=== PATIENT | male | born 1985 | race African-American/Black ===

== ENCOUNTER → 2020-12-14 | Outpatient (CLI) | payer BC ==
[2020-12-14 09:13] LABS: BASOPHILS % 0.4 % (0.0-2.0); EOSINOPHILS % 1.2 % (0.0-5.0); HEMATOCRIT. 38.9 % (42.0-52.0); HEMOGLOBIN. 13.2 g/dL (14.0-18.0); MEAN CORPUSCULAR HEMOGLOBIN 28.1 pg (28.0-32.0); MEAN CORPUSCULAR VOLUME 82.5 fL (80.0-94.0); MEAN PLATELET VOLUME 8.8 fl (7.4-10.4); MONOCYTES % 5.9 % (2.0-8.0); NEUTROPHILS % 39.5 % (40.0-76.0); PLATELET 144 x1000/uL (130-400); RED BLOOD CELL COUNT 4.72 mill/uL (4.7-6.1); RED CELL DISTRIBUTION WIDTH 13.3 % (11.6-14.6)
[2020-12-14 09:23] LABS: CHLORIDE 110 mEq/L (98-107)
[2020-12-14 09:34] LABS: LDL CHOLESTEROL 84 mg/dL (5-100)
[2020-12-14 09:35] LABS: HDL CHOLESTEROL 35 mg/dL (40-59)
== END | disposition home or self-care (01) ==
LOC: LAB 08:15
PROVIDERS: ATTEND Internal Medicine
DX: M51.37 Other intervertebral disc degeneration, lumbosacral region (principal); M54.5 Low back pain
CPT/HCPCS: 36415; 72100; 80053; 80061; 83036; 84443; 85025

== ENCOUNTER 2021-06-02 17:01 | Emergency (ER) | payer BC ==
[~2021-06-02] VITALS: Ht 180.3 cm; Wt 92.0 kg
[2021-06-02] MEDS ORDERED: KETOROLAC 60MG/2ML VIAL IM STA (18:32)
[2021-06-02 18:58] LABS: BASOPHILS % 0.4 % (0.0-2.0); EOSINOPHILS % 0.7 % (0.0-5.0); HEMATOCRIT. 43.7 % (42.0-52.0); HEMOGLOBIN. 14.4 g/dL (14.0-18.0); LYMPHOCYTES % 47.8 % (20.0-50.0); MEAN CORPUSCULAR HEMOGLOBIN 27.6 pg (28.0-32.0); MEAN CORPUSCULAR VOLUME 83.6 fL (80.0-94.0); MEAN PLATELET VOLUME 9.3 fl (7.4-10.4); MONOCYTES % 6.3 % (2.0-8.0); NEUTROPHILS % 44.8 % (40.0-76.0); PLATELET 140 x1000/uL (130-400); RED BLOOD CELL COUNT 5.23 mill/uL (4.7-6.1); RED CELL DISTRIBUTION WIDTH 13.7 % (11.6-14.6)
[2021-06-02 19:04] LABS: CHLORIDE 109 mEq/L (98-107)
[2021-06-02] MEDS ORDERED: IBUP-2028 MT (20:32)
[2021-06-02 21:01] VITALS: BP 138/71
== END 2021-06-02 21:03 | disposition home or self-care (01) ==
LOC: ER 17:01
DX: R07.9 Chest pain, unspecified (principal); R10.9 Unspecified abdominal pain; M54.9 Dorsalgia, unspecified; X50.1XXA Overexertion from prolonged static or awkward postures, initial encounter; Y93.9 Activity, unspecified; Y92.9 Unspecified place or not applicable
CPT/HCPCS: 36415; 71045; 80053; 83690; 85025; 96372; 99284; J1885

== ENCOUNTER → 2021-06-21 | Outpatient (CLI) | payer BC ==
[~2021-06-21] MED LIST: BARIUM SULFATE 450ML ORAL SUSP ONE; IBUP-2028 MT
== END | disposition home or self-care (01) ==
LOC: CT 08:57
PROVIDERS: ATTEND Internal Medicine
DX: R10.9 Unspecified abdominal pain (principal)
CPT/HCPCS: 74176

== ENCOUNTER → 2021-06-25 | Outpatient (CLI) | payer BC ==
[~2021-06-25] MED LIST changes: -BARIUM SULFATE 450ML ORAL SUSP ONE
[2021-06-25 10:14] LABS: BASOPHILS % 0.6 % (0.0-2.0); EOSINOPHILS % 0.8 % (0.0-5.0); HEMATOCRIT. 38.5 % (42.0-52.0); HEMOGLOBIN. 12.9 g/dL (14.0-18.0); LYMPHOCYTES % 51.2 % (20.0-50.0); MEAN CORPUSCULAR HEMOGLOBIN 27.3 pg (28.0-32.0); MEAN CORPUSCULAR VOLUME 81.7 fL (80.0-94.0); MEAN PLATELET VOLUME 9.6 fl (7.4-10.4); MONOCYTES % 5.1 % (2.0-8.0); NEUTROPHILS % 42.3 % (40.0-76.0); PLATELET 122 x1000/uL (130-400); RED BLOOD CELL COUNT 4.71 mill/uL (4.7-6.1); RED CELL DISTRIBUTION WIDTH 13.5 % (11.6-14.6)
[2021-06-25 10:28] LABS: CHLORIDE 107 mEq/L (98-107)
[2021-06-25 10:35] LABS: LDL CHOLESTEROL 94 mg/dL (5-100)
[2021-06-25 10:36] LABS: HDL CHOLESTEROL 33 mg/dL (40-59)
== END | disposition home or self-care (01) ==
LOC: LAB 09:38
PROVIDERS: ATTEND Internal Medicine
DX: D72.819 Decreased white blood cell count, unspecified (principal); R10.9 Unspecified abdominal pain; M54.9 Dorsalgia, unspecified
CPT/HCPCS: 36415; 80053; 80061; 85025

== ENCOUNTER → 2021-11-14 | Outpatient (CLI) | payer BC ==
[2021-11-14 11:16] LABS: BASOPHILS % 0.5 % (0.0-2.0); EOSINOPHILS % 1.3 % (0.0-5.0); HEMATOCRIT. 41.1 % (42.0-52.0); HEMOGLOBIN. 13.5 g/dL (14.0-18.0); LYMPHOCYTES % 51.1 % (20.0-50.0); MEAN CORPUSCULAR HEMOGLOBIN 27.3 pg (28.0-32.0); MONOCYTES % 4.8 % (2.0-8.0); NEUTROPHILS % 42.3 % (40.0-76.0); PLATELET 134 x1000/uL (130-400); RED BLOOD CELL COUNT 4.96 mill/uL (4.7-6.1); RED CELL DISTRIBUTION WIDTH 13.3 % (11.6-14.6)
[2021-11-14 11:29] LABS: CHLORIDE 109 mEq/L (98-107)
[2021-11-14 11:37] LABS: HDL CHOLESTEROL 43 mg/dL (40-59); LDL CHOLESTEROL 134 mg/dL (5-100)
== END | disposition home or self-care (01) ==
LOC: LAB 10:43
PROVIDERS: ATTEND Internal Medicine
DX: M54.50 Low back pain, unspecified (principal)
CPT/HCPCS: 36415; 80053; 80061; 83036; 85025

== ENCOUNTER → 2021-12-27 | Outpatient (CLI) | payer BC ==
[2021-12-27 13:22] LABS: BASOPHILS % 0.3 % (0.0-2.0); EOSINOPHILS % 0.9 % (0.0-5.0); HEMATOCRIT. 42.9 % (42.0-52.0); HEMOGLOBIN. 14.1 g/dL (14.0-18.0); LYMPHOCYTES % 41.8 % (20.0-50.0); MEAN CORPUSCULAR HEMOGLOBIN 27.4 pg (28.0-32.0); MEAN CORPUSCULAR VOLUME 83.5 fL (80.0-94.0); MONOCYTES % 5.1 % (2.0-8.0); NEUTROPHILS % 51.9 % (40.0-76.0); PLATELET 137 x1000/uL (130-400); RED BLOOD CELL COUNT 5.14 mill/uL (4.7-6.1); RED CELL DISTRIBUTION WIDTH 13.6 % (11.6-14.6)
== END | disposition home or self-care (01) ==
LOC: LAB 12:30
PROVIDERS: ATTEND Internal Medicine Hematology & Oncology
DX: D72.818 Other decreased white blood cell count (principal)
CPT/HCPCS: 36415; 85025; 86038